=== PATIENT | female | born 1995 | race Caucasian/White ===

== ENCOUNTER 2017-05-15 11:33 | Emergency (ER) | payer OTHER ==
[2017-05-15 11:38] VITALS: RESP 16
--- NOTE | 2017-05-15 13:15 | CPEKG ---
Heart Rate: 66 RR Interval: 909 P-R Interval: 172 QRSD Interval: 102 QT Interval: 420 QTC Interval: 441 P [place]: 49 QRS [place]: 88 T Wave [place]: 51 EKG Severity - NORMAL ECG - EKG Impression: SINUS RHYTHM Electronically Signed By: Ronnie Christian 15-May-2017 14:57:12
[2017-05-15 13:47] LABS: ANION GAP 13 mEq/L (8-16); CARBON DIOXIDE 27 mEq/l (22-31); CHLORIDE 103 mEq/L (97-110); CREATININE 0.6 mg/dL (0.6-1.0); GLOMERULAR FILTRATION RATE > 60; GLUCOSE 56 mg/dL (70-100); MAGNESIUM 2.3 mg/dL (1.6-2.3); SODIUM 143 mEq/L (134-144)
[2017-05-15 13:59] LABS: TROPONIN I < 0.012 ng/mL (0.000-0.034)
[2017-05-15 14:10] LABS: BHCG-QUALITATIVE NEGATIVE
[2017-05-15 14:28] LABS: MONO TEST NEGATIVE (NEGATIVE)
--- NOTE | 2017-05-15 14:52 | EDPHY ---
H & P Stated Complaint: Had abnl EKG yesterday;declined admission in [place];flew home today HPI/ROS: Chief complaint: Abnormal EKG History of present illness: This is a 21-year-old female who presents to the emergency department with her mother for an abnormal EKG. Patient states she was seen at a hospital in [place] yesterday (she goes to school in [place]) and it was determined she had an abnormal EKG. She was offered admission to the hospital but declined. She flew home and presents here today. On my evaluation she states she has had symptoms. She reports associated symptoms have been present for at least 3 weeks. She reports palpitations on occasion. She does state occasional shortness of breath when she exerts herself. Further she has felt weak all over. She has recently developed a cold but this developed after the other symptoms. She denies other associated signs or symptoms including no actual chest pain, no pain or swelling in the legs, no dizziness or lightheadedness. According to her mother she has had previous episodes of palpitations and fast heart rates reaching into the 180s when she was a child. She has been seen by doctors previously but they have not found any problems. Review of systems: A 10 point review of systems was obtained and other than described above was negative - Personal History LMP (Females 10-55): Now Current Tetanus Diphtheria and Acellular Pertussis (TDAP): Yes - Medical/Surgical History Other PMH: anxiety - Social History Smoking Status: Never smoked - Physical Exam Exam: General Appearance: Alert, nontoxic. Eyes: Pupils equal and round no pallor or injection. ENT, Mouth: Mucous membranes moist. Respiratory: There are no retractions, lungs are clear to auscultation. Cardiovascular: Regular rate and rhythm. Gastrointestinal: Abdomen is soft and non tender, no masses, bowel sounds normal. Neurological: Alert and oriented x4. Strength and sensation intact and symmetrical. Skin: Warm and dry, no rashes. Musculoskeletal: Neck is supple non tender. Extremities are symmetrical, full range of motion. No evidence of DVT in the lower extremities. Psychiatric: Patient is oriented X 3, there is no agitation. Constitutional: Initial Vital Signs Temperature (C) 36.9 C 05/15/17 11:34 Heart Rate 70 05/15/17 11:34 Respiratory Rate 16 05/15/17 11:34 Blood Pressure 96/51 L 05/15/17 11:34 O2 Sat (%) 99 05/15/17 11:34 O2 Delivery Mode Room Air Allergies/Adverse Reactions: No Known Allergies Allergy (Unverified 05/15/17 11:38) Home Medications: Medication Instructions Recorded ALPRAZolam [Xanax 0.5 MG (*)] 0.5 mg PO PRN 05/15/17 Medical Decision Making - Diagnostics Imaging Results: Imaging Impressions Chest X-Ray 05/15/17 13:11 Impression: No pneumonia. ED Course/Re-evaluation: Patient is discussed with my secondary supervising physician Dr. Ronnie Christian. Patient presents to the emergency department reporting palpitations and some exertional dyspnea. She has had symptoms for at least 3 weeks. She has had similar symptoms since she was a child without definitive diagnosis. She is currently sick with cold symptoms. She was seen in [place] yesterday and offered admission to the hospital but declined. Today her evaluation is largely unremarkable. She is asked to be discharged before CBC is reported. I followed up on this and CBC is largely unremarkable. Discussed is not clear as to the cause of her symptoms. She is asked to follow up with a body engineer and is given referral information. She does state she has an appointment with a body engineer in [place] when she returns home next week. Strict return precautions are given. Patient voiced understanding and agreement with plan. Differential Diagnosis: Included but not limited to cardiac dysrhythmias of multiple etiologies, electrolyte disturbances, endocrine disturbances, pericarditis, myocarditis, unlikely ACS - Data Points Laboratory Results: Laboratory Results 05/15/17 14:22 05/15/17 13:28 05/15/17 05/15/17 05/15/17 14:22 13:28 13:28 WBC 5.60 10^3/uL 10^3/uL (3.80-9.50) RBC 3.81 10^6/uL L 10^6/uL (4.18-5.33) Hgb 11.4 g/dL L g/dL (12.6-16.3) Hct 34.9 % L % (38.0-47.0) MCV 91.6 fL fL (81.5-99.8) MCH 29.9 pg pg (27.9-34.1) MCHC 32.7 g/dL g/dL (32.4-36.7) RDW 12.7 % % (11.5-15.2) Plt Count 194 10^3/uL 10^3/uL (150-400) MPV 11.0 fL fL (8.7-11.7) Neut % (Auto) 55.4 % % (39.3-74.2) Lymph % (Auto) 34.6 % % (15.0-45.0) [place] % (Auto) 6.4 % % (4.5-13.0) Eos % (Auto) 2.7 % % (0.6-7.6) Baso % (Auto) 0.5 % % (0.3-1.7) Nucleat RBC Rel Count 0.0 % % (0.0-0.2) Absolute Neuts (auto) 3.10 10^3/uL 10^3/uL (1.70-6.50) Absolute Lymphs (auto) 1.94 10^3/uL 10^3/uL (1.00-3.00) Absolute Monos (auto) 0.36 10^3/uL 10^3/uL (0.30-0.80) Absolute Eos (auto) 0.15 10^3/uL 10^3/uL (0.03-0.40) Absolute Basos (auto) 0.03 10^3/uL 10^3/uL (0.02-0.10) Absolute Nucleated RBC 0.00 10^3/uL 10^3/uL (0-0.01) Immature Gran % 0.4 % % (0.0-1.1) Immature Gran # 0.02 10^3/uL 10^3/uL (0.00-0.10) Sodium 143 mEq/L mEq/L (134-144) Potassium 4.0 mEq/L mEq/L (3.5-5.2) Chloride 103 mEq/L mEq/L (97-110) Carbon Dioxide 27 mEq/l mEq/l (22-31) Anion Gap 13 mEq/L mEq/L (8-16) BUN 13 mg/dL mg/dL (7-23) Creatinine 0.6 mg/dL mg/dL (0.6-1.0) Estimated GFR > 60 Glucose 56 mg/dL L mg/dL (70-100) Calcium 10.0 mg/dL mg/dL (8.5-10.4) Magnesium 2.3 mg/dL mg/dL (1.6-2.3) Troponin I < 0.012 ng/mL ng/mL (0.000-0.034) TSH 1.800 uIU/mL uIU/mL (0.465-4.680) Beta HCG, Qual NEGATIVE [place]os[place] NEGATIVE (NEGATIVE) 05/15/17 13:28 WBC REJ RBC REJ Hgb REJ Hct REJ MCV REJ MCH REJ MCHC REJ RDW REJ Plt Count REJ MPV REJ Neut % (Auto) REJ Lymph % (Auto) REJ [place] % (Auto) REJ Eos % (Auto) REJ Baso % (Auto) REJ Nucleat RBC Rel Count REJ Absolute Neuts (auto) REJ Absolute Lymphs (auto) REJ Absolute Monos (auto) REJ Absolute Eos (auto) REJ Absolute Basos (auto) REJ Absolute Nucleated RBC REJ Immature Gran % REJ Immature Gran # REJ Sodium Potassium Chloride Carbon Dioxide Anion Gap BUN Creatinine Estimated GFR Glucose Calcium Magnesium Troponin I TSH Beta HCG, Qual Monoscreen Departure - Departure Disposition: Home, Routine, Self-Care Clinical Impression: Palpitations Condition: Good Instructions: Palpitations (ED) Additional Instructions: Follow-up with Cardiology for continued evaluation and care If symptoms return or new symptoms develop return to the emergency room for recheck We were not able to finish our workup on you to today's he wanted to leave, this is against medical advice Referrals: NONE *PRIMARY CARE P,. [Primary Care Provider] - As per Instructions Hilario Dave MD [Medical Doctor] - As per Instructions
[2017-05-15 14:56] VITALS: BP 108/64; PULSE 78; TEMP 97.5; O2SAT 98
[2017-05-15 14:57] LABS: % IMMATURE GRANULYOCYTES 0.4 % (0.0-1.1); ABSOLUTE IMMATURE GRANULOCYTES 0.02 10^3/uL (0.00-0.10); ADD DIFF? NO; ADD MORPH? NO; ADD SCAN? NO; ATYPICAL LYMPHOCYTE FLAG 30 (0-99); FRAGMENT RBC FLAG 0 (0-99); HEMATOCRIT 34.9 % (38.0-47.0); HEMOGLOBIN 11.4 g/dL (12.6-16.3); LEFT SHIFT FLG 0 (0-99); LIPEMIA HEMOLYSIS FLAG 80 (0-99); MEAN CELL HEMOGLOBIN 29.9 pg (27.9-34.1); MEAN CELL HEMOGLOBIN CONCENTR. 32.7 g/dL (32.4-36.7); MEAN CELL VOLUME 91.6 fL (81.5-99.8); PLATELET CLUMPS FLAG 0 (0-99); PLATELET COUNT 194 10^3/uL (150-400); RED BLOOD CELL COUNT 3.81 10^6/uL (4.18-5.33); RED CELL DISTRIBUTION WIDTH 12.7 % (11.5-15.2)
== END 2017-05-15 15:03 | disposition home or self-care (01) ==
DX: R00.2 Palpitations (principal)